=== PATIENT | male | born 1960 | race American Indian/Alaskan Native ===

== ENCOUNTER 2021-02-01 16:12 | Emergency (ER) | payer BC ==
[2021-02-01 16:32] VITALS: BP 175/63
--- NOTE | 2021-02-01 17:37 | Emergency Department Report ---
ED Extremity Problem HPI - General Chief complaint: Extremity Problem,Nontraumatic Stated complaint: LEFT LEG SORE Time Seen by Provider: 02/01/21 16:52 Source: patient Mode of arrival: Ambulatory Limitations: No Limitations - History of Present Illness Initial comments: Patient is a 60-year-old male presents emergency room with complaints of left leg swelling and pain that began yesterday. He denies any fall or injury. He denies ever having these symptoms in the past. He denies any numbness, weakness, chest pain, shortness of breath. Past medical history of diabetes and he reports it is well controlled. No allergies to medications. - Related Data Previous Rx's Medication Instructions Recorded Last Taken Type Meloxicam [Mobic] 7.5 mg PO QDAY #20 tablet 02/01/21 Unknown Rx traMADoL [Ultram 50 MG tab] 50 mg PO Q6HR PRN #12 tablet 02/01/21 Unknown Rx Allergies Allergy/AdvReac Type Severity Reaction Status Date / Time No Known Allergies Allergy Verified 02/01/21 16:32 ED Review of Systems ROS: Stated complaint: LEFT LEG SORE Other details as noted in HPI Comment: All other systems reviewed and negative ED Past Medical Hx - Medications Home Medications: Home Medications Medication Instructions Recorded Confirmed Last Taken Type Meloxicam [Mobic] 7.5 mg PO QDAY #20 tablet 02/01/21 Unknown Rx traMADoL [Ultram 50 MG tab] 50 mg PO Q6HR PRN #12 tablet 02/01/21 Unknown Rx ED Physical Exam - General Limitations: No Limitations General appearance: alert, in no apparent distress - Head Head exam: Present: atraumatic, normocephalic - Eye Eye exam: Present: normal appearance - ENT ENT exam: Present: mucous membranes moist - Extremities Exam Extremities exam: Present: other (ttp to the left calf, non pitting edema to the LLE, no increased warmth or erythema, no ulceration, dp and pt pulse found with doppler, sensation intact, no bony ttp, FROM) - Neurological Exam Neurological exam: Present: alert, oriented X3 - Psychiatric Psychiatric exam: Present: normal affect, normal mood - Skin Skin exam: Present: warm, dry ED Course Vital Signs 02/01/21 16:31 Temperature 98.1 F Pulse Rate 57 L Respiratory 18 Rate Blood Pressure 175/63 [Left] O2 Sat by Pulse 100 Oximetry ED Medical Decision Making - Radiology Data Radiology results: report reviewed Ordering Physician: PARKER MCCOY Date of Service: 02/01/21 Procedure(s): VL venous duplex LE LT Accession Number(s): [id number] cc: PARKER MCCOY DUPLEX DOPPLER LOWER EXTREMITY VEINS, LEFT INDICATION / CLINICAL INFORMATION: left leg swelling and pain. TECHNIQUE: Duplex doppler imaging was performed through the veins of the left lower extremity using venous compression and other maneuvers. COMPARISON: None available. FINDINGS: LEFT COMMON FEMORAL VEIN: Negative. LEFT FEMORAL VEIN: Negative. LEFT POPLITEAL VEIN: Negative. LEFT CALF VEINS: Negative. ADDITIONAL FINDINGS: None. IMPRESSION: 1. No sonographic evidence for DVT in the left lower extremity. Signer Name: James Pisano MD Signed: 02/01/2021 8:52 PM Workstation Name: [id number] Transcribed By: DB Dictated By: JAMES PISANO MD Electronically Authenticated By: JAMES PISANO MD Signed Date/Time: 02/01/212051 DD/ 51 TD/TT: - Medical Decision Making Patient is a 60-year-old male presents emergency room with complaints of left leg swelling and pain that began yesterday. He denies any fall or injury. He denies ever having these symptoms in the past. He denies any numbness, weakness, chest pain, shortness of breath. Past medical history of diabetes and he reports it is well controlled. No allergies to medications. Vitals are stable. On exam:ttp to the left calf, non pitting edema to the LLE, no increased warmth or erythema, no ulceration, dp and pt pulse found with doppler, sensation intact, no bony ttp, FROM. Ultrasound left lower extremity 1. No sonographic evidence for DVT in the left lower extremity. No signs of infection or cellulitis. Patient be referred to primary care doctor and vascular surgeon. Discussed return precautions. Patient given prescription for medication. Advised patient Please take medication as prescribed. Follow-up with your primary care doctor. Follow-up with vascular surgeon. Eat a low- sodium diet. Elevate your legs. Wear compression stockings while you are on your feet. Return to emergency room for any new or worsening symptoms. Critical care attestation.: If time is entered above; I have spent that time in minutes in the direct care of this critically ill patient, excluding procedure time. ED Disposition Clinical Impression: Left leg pain, Left leg swelling Disposition: 01 HOME / SELF CARE / HOMELESS Is pt being admited?: No Does the pt Need Aspirin: No Condition: Stable Additional Instructions: Please take medication as prescribed. Follow-up with your primary care doctor. Follow-up with vascular surgeon. Eat a low-sodium diet. Elevate your legs. Wear compression stockings while you are on your feet. Return to emergency room for any new or worsening symptoms. Prescriptions: Meloxicam [Mobic] 7.5 mg PO QDAY #20 tablet traMADoL [Ultram 50 MG tab] 50 mg PO Q6HR PRN #12 tablet PRN Reason: Pain , Severe (7-10) Referrals: PRIMARY CARE, [Primary Care Provider] - 3-5 Days [facility] [Provider Group] - 3-5 Days Time of Disposition: 21:02 Print Language: WELSH
--- NOTE | 2021-02-01 20:56 | Vascular Lab Report ---
DUPLEX DOPPLER LOWER EXTREMITY VEINS, LEFT INDICATION / CLINICAL INFORMATION: left leg swelling and pain. TECHNIQUE: Duplex doppler imaging was performed through the veins of the left lower extremity using v enous compression and other maneuvers. COMPARISON: None available. FINDINGS: LEFT COMMON FEMORAL VEIN: Negative. LEFT FEMORAL VEIN: Negative. LEFT POPLITEAL VEIN: Negative. LEFT CALF VEINS: Negative. ADDITIONAL FINDINGS: None. IMPRESSION: 1. No sonographic evidence for DVT in the left lower extremity. Signer Name: Dago Pisano MD Signed: 02/01/2021 8:52 PM Workstation Name: [id number]
== END 2021-02-01 21:14 | disposition home or self-care (01) ==
LOC: ED 16:12
DX: M79.605 Pain in left leg (principal)
CPT/HCPCS: 99283